=== PATIENT | female | born 1930 | race Caucasian/White ===

== ENCOUNTER 2016-11-29 08:00 | Observation (INO) | payer MEDICARE, OTHER ==
[~2016-11-29] VITALS: Ht 167.6 cm; Wt 98.8 kg
--- NOTE | ~2016-11-29 | OR ---
PATIENT'S NAME: MADISON OWENS [facility] AGE: 86 Y [address] ROOM: [place] [address] LOCATION: [facility] ADMIT DATE: 12/07/2016 OR/Procedure Report DISCHARGE DATE: 12/09/2016 FAMILY PHYSICIAN: Jim Cesar MD ATTENDING PHYSICIAN: SUMMER CAUSEY SURGEON: Summer Causey MD WELFARE WORKER: Mele Schofield PA-C. DATE OF PROCEDURE: 12/07/2016 Corrected copy per physician 01/03/17 AO PREOPERATIVE DIAGNOSES: 1. Right chronic foot drop. 2. Short Achilles tendon/gastrocnemius equinus. POSTOPERATIVE DIAGNOSES: 1. Right chronic foot drop. 2. Short Achilles tendon/gastrocnemius equinus. PROCEDURE: 1. Right ankle fusion. 2. Gastrocnemius recession. 3. Use of intraoperative fluoroscopy, less than 1 hour. 4. Placement of short-leg splint intraoperatively. ANESTHESIA: Spinal and peripheral nerve blocks. ESTIMATED BLOOD LOSS: Minimal. TOURNIQUET: Right proximal thigh 250 mmHg. SPECIMEN: None. COMPLICATIONS: None. DISPOSITION: Stable in PACU. COUNT: All counts correct. IMPLANTS: Synthes 7.3 mm partially threaded and cannulated screws for ankle fusion x3. INDICATIONS: Ms Owens is a pleasant 85-year-old female who underwent the noted procedures above. The risks, benefits, and alternatives pursuing surgical intervention in detail were discussed. The patient elected to proceed with surgery. Informed consent was obtained. Anesthesia was consulted for their perioperative evaluation of the patient. I marked the right lower extremity PATIENT'S NAME: MADISON OWENS [facility] AGE: 86 Y [address] ROOM: [place] [address] LOCATION: [facility] ADMIT DATE: 12/07/2016 OR/Procedure Report DISCHARGE DATE: 12/09/2016 FAMILY PHYSICIAN: Jim Cesar MD ATTENDING PHYSICIAN: SUMMER CAUSEY indicating the correct surgical site. DESCRIPTION OF PROCEDURE: The patient was taken to the holding area in the operative room. Time-out was performed. Spinal anesthesia was administered. Clindamycin antibiotic was administered for perioperative prophylaxis. The right lower extremity was then prepped and draped in a sterile fashion. A time-out was performed. An Esmarch was used to exsanguinate the right lower extremity. The tourniquet was inflated to 250 mmHg. I turned my attention the lateral aspect of the ankle. I made a transfibular incision to access the lateral aspect of the ankle. Incision was carried through skin and subcutaneous tissue down to bone. I used an oscillating saw to osteotomize the fibula, subsequently removed and used it for autogenous bone graft. I then used a Hintermann, retracted and accessed the tibiotalar joint. Using a series of osteotomes and curettes to remove the cartilage from the talar dome and tibial plafond. An accessary incision was made at the anterior medial aspect of the ankle joint to access the medial malleolus and medial aspect of the talus. I used an osteotome and a curette to remove the cartilage there as well. A 0.62 K-wire was used to poke holes in the subchondral bone to allow for bony bleeding. The ankle joint was then copiously irrigated with normal sterile saline solution via pulsatile lavage. The autogenous bone graft was placed in the fusion site. I then turned my attention medial aspect of the leg. I began with an incision for my gastrocnemius recession. This was done with a 15 blade knife through skin and subcutaneous tissue down through fascia. I identified the gastrocnemius aponeurosis. I performed a gastrocnemius recession of procedure. I then copiously irrigated the wound and closed in layers. Using my physician shipping assistant, I had holed the ankle in a neutral position. I passed three partially threaded wires. One from the lateral process of the talus into the medial distal tibia. Thus, 2nd screw placed from the medial aspect of the tibia through the lateral body of the talus, and a 3rd pin placed from the anterior distal tibia to the posterior body of the talus. All three pin positions were confirmed fluoroscopically as well as the reduction. The pins were then measured, overdrilled, and placed in sequence. I achieved good compression through all three screws. The position of all three screws were confirmed fluoroscopically as well as excellent reduction. There were all terminally tightened in sequence. Excess three autogenous bone graft was placed around the fusion site. PATIENT'S NAME: MADISON OWENS [facility] AGE: 86 Y [address] ROOM: [address] [address] LOCATION: [facility] ADMIT DATE: 12/07/2016 OR/Procedure Report DISCHARGE DATE: 12/09/2016 FAMILY PHYSICIAN: Jim Cesar MD ATTENDING PHYSICIAN: SUMMER CAUSEY Final fluoroscopic images were taken indicating a successful right ankle joint fusion with hardware intact. The wounds were then irrigated again and closed in layers. The tourniquet was then let down. Sterile dressing was placed in the form of Xeroform, followed by 4x4, and Webril. The patient was then placed into a well-padded short-leg splint with the ankle in neutral dorsiflexion. The patient was then transferred to operating table on the stretcher and brought to recovery room in stable condition. There were no intraoperative complications noted. Of note, my PA, Mele Schofield PA-C, played an integral role in the intraoperative care of this patient. This included preoperative positioning, intraoperative expert retraction, and closing and splinting functions. IMPRESSION: The patient is status post the noted procedures above. PLAN: The patient will be nonweightbearing on the right lower extremity in a short-leg splint. She will be instructed to rest, ice, and elevate going forward. Postoperative pain control in the form Percocet and IV morphine as needed for pain, and we are going to give her aspirin 325 b.i.d. DVT prophylaxis will be in the form of aspirin. The hospitalist Service will be consulted for management of concomitant medical comorbidities. Postoperative antibiotics will be in the form of clindamycin. Physical Therapy and Occupational Therapy will be consulted for early ambulation, prevention of deconditioning. I will follow the patient closely in the postoperative period. MD PURVI LEI/modl /[id number] Corrected copy per physician 01/03/17 AO d: 12/07/16 1841 t: 01/03/17 1409, OPERATIVE SUMMARY
--- NOTE | ~2016-11-29 | DS ---
PATIENT'S NAME: MADISON OWENS [facility] AGE: 85 Y [address] ROOM: [id number] [place], [place] [address] LOCATION: [facility] ADMIT DATE: 12/07/2016 Discharge Summary DISCHARGE DATE: 12/09/2016 FAMILY PHYSICIAN: Jim Cesar MD ATTENDING PHYSICIAN: Raimundo Kern ADMITTING DIAGNOSES: 1. Right chronic foot drop. 2. Short Achilles tendon/gastrocnemius equinus. DISCHARGE DIAGNOSES: 1. Right chronic foot drop. 2. Short Achilles tendon/gastrocnemius equinus. SECONDARY DIAGNOSES: 1. Hypertension. 2. Osteoarthritis. 3. Osteoporosis. 4. Hyperlipidemia. 5. Gastroesophageal reflux disease. 6. Chronic ischemic heart disease. 7. Degenerative joint disease. 8. Depression. 9. Obstructive sleep apnea. 10. History of deep vein thrombosis. CONSULTATIONS: To the Hospitalist Service for medical management. PROCEDURE: On december 07, 2016, the patient underwent the following procedure by Dr. Kern. 1. Right ankle fusion. 2. Gastrocnemius recession. HISTORY OF PRESENT ILLNESS: The patient is an 85-year-old female patient, who has been seen by Dr. Kern in the past with complaints of right chronic foot drop and shortened Achilles tendon/gastrocnemius equinus. Symptoms had affected the patient's activities of daily living and it was felt that the patient would benefit from as above described procedure. At her last surgical appointment, the patient was scheduled for surgery at that time. HOSPITAL COURSE: The patient underwent the above-described procedure on December 07, 2016 and tolerated procedure well. She was admitted inpatient and was cared for by the hospitalist for medical management. She was kept nonweightbearing of her right lower extremity. She was kept under adequate pain control during her hospitalization. She did work with physical PATIENT'S NAME: MADISON OWENS [facility] AGE: 85 Y [address] ROOM: [id number] [place], [place] [address] LOCATION: [facility] ADMIT DATE: 12/07/2016 Discharge Summary DISCHARGE DATE: 12/09/2016 FAMILY PHYSICIAN: Jim Cesar MD ATTENDING PHYSICIAN: Raimundo Kern therapy and occupational therapy during her hospitalization. Her postoperative course was unremarkable and the patient was felt stable to be transferred to [facility] for recovery on November. DISCHARGE MEDICATIONS: Stopped medications: Aspirin 81 mg. Medications on hold: 1. The patient's tramadol is to be on hold while she is on Percocet. 2. The patient's omega-3 fish oil is to be on hold while she is taking Xarelto. New medications: 1. Xarelto 10 mg p.o. daily. 2. Percocet 5/325 mg one tab every 6 hours as needed for pain. The patient was otherwise instructed to continue her preadmission medications as instructed by her internal medicine doctor. DISCHARGE INSTRUCTIONS: The patient is to be nonweightbearing of right lower extremity. She is to eat a low fat, low salt diet. Follow up is to be in Dr. Kern's office on Wednesday December 21, 2016 at 12:50 p.m. for initial preoperative evaluation. DISCHARGE STATUS: Good. ARI Angelica HENRY PA-C FOR MD CECILIA LEI/tommy /[id number] d: 12/16/161799 t: 01/05/17 170, DISCHARGE SUMMARY
[~2016-11-29 08:00] MED LIST: ASPIRIN EC81 MG PO; COLACE100 MG PO; DILAUDID 2MG(HYD2 MG PO; FISH OIL 1,0001 EACH PO; K-TAB 10MEQ10 MEQ PO; NEURONTIN100 MG PO; PAIN RELIEF500 M1 PO; PRINIVIL OR ZES10 MG PO; THERA-VITE W/ B1 TAB PO; ULTRAM50 MG PO; VALIUM5 MG PO; XARELTO10 MG PO; ZOCOR40 MG PO; [UNRECOGNIZED DRUG - OTHER] PO
[2016-11-29] MEDS ORDERED: CPAP INH (08:26)
[2016-12-08 05:18] LABS: BASOPHIL % 0.2 %; EOSINOPHIL # 0.1 K/uL (0.0-0.5); HEMOGLOBIN 12.3 g/dL (10.0-15.0); IMMATURE GRANULOCYTE % 0.2 %; LYMPHOCYTE # 1.3 K/uL (0.8-4.0); LYMPHOCYTE % 14.5 %; MCH 29.9 pg (27.0-34.0); MCHC 31.5 gm/dL (32.0-36.5); MCV 94.9 fl (83.0-98.0); MONOCYTE # 0.9 K/uL (0.0-1.0); MONOCYTE % 10.3 %; MPV 10.6 fl (9.4-12.4); NEUTROPHIL # (ANC) 6.6 K/uL (1.8-7.8); NEUTROPHIL % 73.8 %; NRBC % 0 /100WBC (0-0.00); PLATELET COUNT 160 K/uL (150-450); RBC 4.11 M/uL (3.00-5.00); RDW-CV 14.2 % (11.9-14.6)
[2016-12-09] MEDS ORDERED: MIRALAX17 GM PO (09:53)
[2016-12-09] MEDS ORDERED: XARELTO10 MG PO (09:55)
[2016-12-09] MEDS ORDERED: PERCOCET 5-3251 EACH PO (09:56)
== END 2016-12-09 13:25 | disposition swing bed (61) ==
LOC: G3N 12-07 05:52
PROVIDERS: ADMIT Orthopaedic Surgery Adult Reconstructive Orthopaedic Surgery
PROC: 0SGF0ZZ (ICD-10-PCS; principal; 2016-12-07)
PROC: 0L8N0ZZ Division of Right Lower Leg Tendon, Open Approach (ICD-10-PCS; 2016-12-07)
DX: M21.6X1 Other acquired deformities of right foot (principal); M21.371 Foot drop, right foot; I10 Essential (primary) hypertension; M81.0 Age-related osteoporosis without current pathological fracture; M16.11 Unilateral primary osteoarthritis, right hip; K21.9 Gastro-esophageal reflux disease without esophagitis; I25.9 Chronic ischemic heart disease, unspecified; G47.33 Obstructive sleep apnea (adult) (pediatric); F32.9 Major depressive disorder, single episode, unspecified; F17.210 Nicotine dependence, cigarettes, uncomplicated; E78.5 Hyperlipidemia, unspecified; E66.9 Obesity, unspecified; Z68.35 Body mass index [BMI] 35.0-35.9, adult; Z79.82 Long term (current) use of aspirin; Z79.899 Other long term (current) drug therapy; Z98.890 Other specified postprocedural states
CPT/HCPCS: C1713; G0378; G8978; G8979; G8980; G8987; G8988; G8989; J2250; J2270; J2765; J3480; J7120